=== PATIENT | male | born 1995 | race Caucasian/White ===

== ENCOUNTER 2017-07-21 16:18 | Emergency (ER) | payer OTHER ==
[2017-07-21] MEDS: LIDOCAINE 1% (MDV) 10 ML INJ INJ (18:05)
[2017-07-21] MEDS: ACETAMINOPHEN 325 MG TAB PO (18:10)
[2017-07-21] MEDS: DIPHTH/TET/ACEL PERTUSS (ADULT) 0.5 ML VIAL IM (18:11)
== END 2017-07-21 18:46 | disposition home or self-care (01) ==
LOC: FTE 16:18
DX: S01.01XA Laceration without foreign body of scalp, initial encounter (principal); S51.011A Laceration without foreign body of right elbow, initial encounter; W18.09XA Striking against other object with subsequent fall, initial encounter; Y92.9 Unspecified place or not applicable; Z23 Encounter for immunization
CPT/HCPCS: 12002; 70450; 70486; 90471; 90715; 99285-25